=== PATIENT | female | born 2005 | race Caucasian/White ===

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

== ENCOUNTER 2024-02-07 15:46 | Emergency (ER) | payer OTHER, SELFPAY ==
[2024-02-07 16:00] VITALS: BP 110/73; PULSE 93; RESP 18; TEMP 37.1; O2SAT 100
--- NOTE | 2024-02-07 16:00 | ED.URI ---
HPI - URI/Sore Throat General Chief Complaint: Upper Respiratory Infection Stated Complaint: cough/runny nose Time Seen by Provider: 02/07/24 16:00 Source: patient and RN notes reviewed Mode of arrival: ambulatory Limitations: no limitations History of Present Illness HPI Narrative: 18-year-old female presents with concern for one-week history of cough. Reports she started having a runny nose yesterday. She fever, body aches, chills, sweats MD elicited complaint: cough and rhinorrhea Related Data Allergies Allergy/AdvReac Type Severity Reaction Status Date / Time Penicillins Allergy Unknown Rash Verified 02/07/24 16:01 Review of Systems Review of Systems: CONSTITUTIONAL: Denies malaise, chills, sweats, or fever. EYES: Denies visual changes, redness, or discharge. ENT: Reports rhinorrhea. Denies congestion, sinus pain, otalgia and sore throat. CARDIOVASCULAR: Denies chest pain, palpitations, or edema. RESPIRATORY: Reports cough. Denies dyspnea. GASTROINTESTINAL: Denies abdominal pain, nausea, vomiting, diarrhea SKIN: Denies rash or itching. MUSCULOSKELETAL: Denies myalgia. NEUROLOGIC: Denies headache. All systems reviewed & are unremarkable except as noted in HPI and below PMFSH Comments At time of signature, agree with nursing past medical, surgical, social and family history. There is no relevant family history pertinent to the presenting complaint Exam Narrative: GENERAL: Well-appearing, well-nourished, and in no acute distress. HEAD: Normocephalic EYES: PERRLA, conjunctivae clear ENT: Nares clear, clear discharge. Mucous membranes moist. TM pearly crespo with dull light reflex bilaterally; no tragal tenderness. Oropharynx not erythematous without lesions. Tonsils not enlarged and without exudate, no drooling, no hoarseness, no trismus, uvula midline. NECK: Supple. No lymphadenopathy CHEST: Clear to auscultation, breath sounds equal. No wheezing, rhonchi, rales, or stridor. No respiratory distress, speaks in full sentences. HEART: Regular rate and rhythm. No murmur heard. SKIN: Warm, dry, no rash. NEURO: Alert and oriented x3. PSYCH: Normal mood and affect Course Course Emergency Course: Patient is aware of diagnosis, understands and agrees to treatment plan. Anticipatory guidance given. Patient agrees to follow-up as directed and is aware of reasons to seek care at the emergency department. Portions of this record may have been created with voice recognition software Level of Care: Express Care Visit Vital Signs Vital signs: Reviewed. MDM - URI/Sore Throat MDM Narrative Medical decision making narrative: Differential diagnosis considered: Meyer virus, strep pharyngitis, allergic rhinitis, upper respiratory tract infection, sinusitis, rhinosinusitis, nasopharyngitis. viral pharyngitis, otitis media, otitis externa, pneumonia, bronchitis, viral cough syndrome, viral syndrome, and influenza. Exam findings show no acute concerns or changes; patient is non-toxic appearing and is in no distress. Patient is appropriate for outpatient treatment and follow-up. Lab Data Attestation: I reviewed the patient's lab results. Critical Care Time Critical Care Time Critical Care Time: No Discharge Plan Discharge Clinical Impression: Acute lower respiratory infection Patient Disposition: Home, Self-Care Condition: Stable Instructions: Antibiotic Form, Acute Cough (ED) Additional Instructions: 1) Please follow-up with your primary care doctor in the next 1-2 days. 2) If you have any worsening of symptoms or any other urgent concerns please go to the ER. 3) Please take medications as prescribed and continue taking your home medications as usual. 4) Please read and follow information included in discharge instructions. Prescriptions: New methylprednisolone [Medrol (Xavi)] 4 mg tablets,dose pack See Rx Instructions .ROUTE .COMPLEX Qty: 21 0RF Rx Instructions: orally per package directions azithromycin [Zithromax Z-Xavi] 250 mg tablet See Rx Instructions .ROUTE .COMPLEX Qty: 6 0RF Rx Instructions: take 500 mg today (day 1), then 250 mg for 4 days (days 2-5) Follow-up/Referrals: Lawrence,Vania Hagen MD [Primary Care Provider] - Time of Disposition: 16:05
== END 2024-02-07 16:10 | disposition home or self-care (01) ==
PROVIDERS: Emergency Provider Nurse Practitioner; PCP Family Medicine
DX: J22 Unspecified acute lower respiratory infection (principal)
CPT/HCPCS: 99213; G0463

== ENCOUNTER 2024-04-23 16:20 | Emergency (ER) | payer OTHER, SELFPAY ==
[2024-04-23 16:25] VITALS: BP 113/77; PULSE 77; RESP 20; TEMP 36.8; O2SAT 100
--- NOTE | 2024-04-23 16:46 | ED.URI ---
HPI - URI/Sore Throat General Chief Complaint: Upper Respiratory Infection Stated Complaint: Sore Throat Time Seen by Provider: 04/23/24 16:50 History of Present Illness HPI Narrative: 18 y/o female presented for c/o cough, sore throat and nasal congestion. Onset 3 days. Denies sob, wheezing, lethargy, n/v/d/f/c. Taking Nyquil. Related Data Home Medications ?Medication ?Instructions ?Recorded ?Confirmed ?Last Taken ?Type metronidazole 0.75 % (37.5 mg/5 1 appful vaginal .2XWEEK 04/23/24 Unknown History gram) vaginal gel Allergies Allergy/AdvReac Type Severity Reaction Status Date / Time Penicillins Allergy Unknown Rash Verified 04/23/24 16:45 Review of Systems Review of Systems: ROS per HPI Exam Narrative: GENERAL: well-appearing, no acute distress. EYES: conjunctivae clear ENT: Mucous membranes moist. TM pearly crespo with normal light reflex bilaterally; no tragal tenderness. Oropharynx not erythematous without lesions. Tonsils not enlarged and without exudate. No drooling, no hoarseness, no trismus, uvula midline. No tripod positioning, hot potato voice, or soft palate swelling. NECK: Supple. No lymphadenopathy CHEST: Clear to auscultation, breath sounds equal. No respiratory distress, speaks in full sentences. HEART: Regular rate and rhythm. No murmur heard. SKIN: Warm, dry, no rash. NEURO: Alert and oriented x3. Course Course Emergency Course: Patient is aware of diagnosis, understands and agrees to treatment plan. Anticipatory guidance given. Patient agrees to follow-up as directed and is aware of reasons to seek care at the emergency department. Portions of this record may have been created with voice recognition software Level of Care: Express Care Visit Vital Signs Vital signs: Vital Signs Temperature 98.3 F 04/23/24 16:25 Pulse Rate 77 04/23/24 16:25 Respiratory Rate 20 04/23/24 16:25 Blood Pressure 113/77 04/23/24 16:25 Pulse Oximetry 100 04/23/24 16:25 Oxygen Delivery Room Air 04/23/24 16:25 Temperature 98.3 F 04/23/24 16:25 Pulse Rate 77 04/23/24 16:25 Respiratory Rate 20 04/23/24 16:25 Blood Pressure 113/77 04/23/24 16:25 Pulse Oximetry 100 04/23/24 16:25 Oxygen Delivery Room Air 04/23/24 16:25 MDM - URI/Sore Throat MDM Narrative Medical decision making narrative: Negative flu, COVID,strep result reviewed with pt. Advise supportive treatments. Patient is appropriate for outpatient treatment and follow-up. Differential Diagnosis Differential diagnosis: Likely upper respiratory infection, viral infection and pharyngitis Discharge Plan Discharge Clinical Impression: Upper respiratory infection Patient Disposition: Home, Self-Care Condition: Stable Instructions: Antibiotic Form, Upper Respiratory Infection (ED) Additional Instructions: flu and COVID negative. Rapid strep swab was negative today You will be notified in a few days if the culture comes back positive for strep, and appropriate antibiotics will be called in at that time. if symptoms are due to a viral illness, it is not treated with antibiotics. Viral symptoms can be present for up to 10-14 days. Recommend Flonase spray and Zyrtec for sinus congestion Cough syrup may cause drowsiness; avoid driving or take it at night time. Tylenol every 8 hours as needed for pain/fever Soft foods, cool liquids, warm tea. Gargle with warm saltwater twice a day. Chloraseptic spray and throat lozenges. Rest and stay hydrated. --Follow up with your PCP --Go to the ER immediately if you cannot swallow your saliva, trouble breathing/wheezing, throat swelling, pain is persistent and severe Patient Language: Citizen Of [place] Prescriptions: No Action metronidazole 0.75 % (37.5mg/5 gram) gel 1 appful VAGINAL .2XWEEK Follow-up/Referrals: Lawrence,Vania Hagen MD [Primary Care Provider] - Time of Disposition: 16:59
[2024-04-23 16:58] LABS: EDCOVIDSCREEN Negative (Negative); EDINFLUASCREEN Negative (Negative); EDINFLUBSCREEN Negative (Negative); EDSTREPNEGPOS1 Negative (Negative)
--- OUTSIDE RECORDS SUMMARY | 2024-04-27 10:48 | XMS_ITS | Data Portability ---
Author Organization [facility] Address [address] [place] [address] Care Team Providers Care Denture Processor Name Role Phone DONI SOUTH Sausage Wrapper DONI SOUTH Family Medicine Assessment No assessment recorded. Plan of Treatment Reminders Order Date Submit Date Provider Last Modified By Organization Details Last Modified Time Details Appointments Prophy 30 2024 01:00P Lucho COLON, NIC Not available Not available Not available Lab PPD (purified protein derivativ e), skin test [address] [facility] In-Office Order, Internal Use Only DO Not Attach Compendium DO Not Attach Compendium, Do Not Delete/merge, [id number] 07/10/2022 11:15:09 PPD (purified protein derivativ e), skin test 2022 023 [facility] In-Office Order, Internal Use Only DO Not Attach Compendium DO Not Attach Compendium, Do Not Delete/merge, [id number] 07/16/2022 15:19:50 vaginal pathogens panel, LALY+probe , vaginal fluid 2023 024 [facility], [address], [place], [address], 12/24/2023 07:37:54 lipid panel, serum 2023 024 [facility], [address], [address], [place], [address], 12/23/2023 03:36:48 CMP, serum or plasma 2023 024 [facility], [address], [address], [place], [address], 12/23/2023 03:36:49 CBC 2023 024 Y[facility], [address], [address], [place], [address], 12/23/2023 03:36:49 Referral None recorded. Procedures None recorded. Surgeries None recorded. Imaging None recorded. Medication Orders Tubersol 5 tub. unit/0.1 mL intraderm al injection solution 2022 023 [id number], [address], [place], [place], [id number], 07/10/2022 11:15:09 Tubersol 5 tub. unit/0.1 mL intraderm al injection solution 2022 023 [email or web address] Not available 08/05/2022 16:57:34 metronida zole 0.75 % (37.5 mg/5 gram) vaginal gel 2023 024 [id number], [address], [place], [place], [id number], 01/25/2024 16:40:05 Patient TargetsNo targets recorded. Patient Instructions Encounter Date Encounter Id Patient Instructions Last Modified By Organization Details Last Modified Time 07/02/2022 [id number] Learning About How to Make Healthy Changes in Your Child's Diet csuhre Not available 07/02/2022 16:53:22 Considering More Physical Activity for Your Child csuhre Not available 07/02/2022 16:53:23 Well Visit, Teens: Care Instructions csre Not available 07/02/2022 17:07:01 07/13/2022 [id number] learning about tuberculosis (TB) csuhre Not available 08/05/2022 15:05:13 12/22/2023 [id number] A healthy lifestyle: care instructions [email or web address] Not available 12/22/2023 09:37:12 Reason for Referral None Reported. Results Created Date Observation Date Name Description Value Unit Range Abnormal Flag Note LastModifiedBy Organization Detail LastModifiedTime 07/09/1907/08/2022 PPD (tess fied prote in deriv ative ), skin test Result Negati ve Not Available In-Office Order Internal Use Only DO Not Attach Compendium DO Not Attach Compendium, Do Not Delete/merge, [id number] 07/07/2022 16:21:42 07/17/19 23 07/16/2022 PPD (tess fied prote in deriv ative ), skin test Result Negati ve Not Available In-Office Order Internal Use Only DO Not Attach Compendium DO Not Attach Compendium, Do Not Delete/merge, [id number] 07/13/2022 09:03:27 12/22/19 24 12/23/2023 LIPID PANEL cholesterol, total 155 mg/dL 100-16 9 Not Available [facility] ([facility]) [address] [place], [address], 12/23/2023 03:36:48 12/22/19 24 12/23/2023 LIPID PANEL triglyceride s 67 mg/dL 0-89 Not Available [facility] ([facility]) [address] [place], [address], 12/23/2023 03:36:48 12/22/19 24 12/23/2023 LIPID PANEL HDL cholesterol 59 mg/dL >39 Not Available [facility]) [address] [place], [address], 12/23/2023 03:36:48 12/22/19 24 12/23/2023 LIPID PANEL VLDL cholesterol denia 13 mg/dL 5-40 Not Available [facility] ([facility]) [address] [place], [address], 12/23/2023 03:36:48 12/22/19 24 12/23/2023 LIPID PANEL LDL chol calc ([facility]) 83 mg/dL 0-109 Not Available [facility] ([facility]) [address] [facility], [place], [address], 12/23/2023 03:36:48 12/22/19 24 12/23/2023 COMP. METAB OLIC PANEL (14) glucose 89 mg/dL 70-99 Not Available [facility] ([facility]) [address] [place], [address], 12/23/2023 03:36:49 12/22/19 24 12/23/2023 COMP. METAB OLIC PANEL (14) BUN 13 mg/dL 6-20 Not Available [facility] ([facility]) [address] [place], [address], 12/23/2023 03:36:49 12/22/19 24 12/23/2023 COMP. METAB OLIC PANEL (14) creatinine 0.97 mg/dL 0.57-1 .00 Not Available [facility] ([facility]) [address] [place], [address], 12/23/2023 03:36:49 12/22/19 24 12/23/2023 COMP. METAB OLIC PANEL (14) eGFR 86 mL/mi n/1.7 3 >59 Not Available [facility] ([facility]) [address] [place], [address], 12/23/2023 03:36:49 12/22/19 24 12/23/2023 COMP. METAB OLIC PANEL (14) BUN/creatini ne ratio 13 9-23 Not Available [facility] ([facility]) [address] [place], [address], 12/23/2023 03:36:49 12/22/19 24 12/23/2023 COMP. METAB OLIC PANEL (14) sodium 140 mmol/ L 134-14 4 Not Available [facility] ([facility]) [address] [place], [address], 12/23/2023 03:36:49 12/22/19 24 12/23/2023 COMP. METAB OLIC PANEL (14) potassium 4.0 mmol/ L 3.5-5. 2 Not Available [facility] ([facility]) [address] [place], [address], 12/23/2023 03:36:49 12/22/19 24 12/23/2023 COMP. METAB OLIC PANEL (14) chloride 104 mmol/ L 96-106 Not Available [facility] ([facility]) [address] [facility], [place], [address], 12/23/2023 03:36:49 12/22/19 24 12/23/2023 COMP. METAB OLIC PANEL (14) carbon dioxide, total 20 mmol/ L 20-29 Not Available [facility] ([facility]) [address] [facility], [place], [address], 12/23/2023 03:36:49 12/22/19 24 12/23/2023 COMP. METAB OLIC PANEL (14) calcium 9.6 mg/dL 8.7-10 .2 Not Available [facility] ([facility]) [address] [place], [address], 12/23/2023 03:36:49 12/22/19 24 12/23/2023 COMP. METAB OLIC PANEL (14) protein, total 7.0 g/dL 6.0-8. 5 Not Available [facility] ([facility]) [address] [place], [address], 12/23/2023 03:36:49 12/22/19 24 12/23/2023 COMP. METAB OLIC PANEL (14) albumin 4.7 g/dL 4.0-5. 0 Not Available [facility] ([facility]) [address] [facility], [place], [address], 12/23/2023 03:36:49 12/22/19 24 12/23/2023 COMP. METAB OLIC PANEL (14) globulin, total 2.3 g/dL 1.5-4. 5 Not Available [facility] ([facility]) [address] [place], [address], 12/23/2023 03:36:49 12/22/19 24 12/23/2023 COMP. METAB OLIC PANEL (14) bilirubin, total 0.8 mg/dL 0.0-1. 2 Not Available [facility] ([facility]) [address] [place], [address], 12/23/2023 03:36:49 12/22/19 24 12/23/2023 COMP. METAB OLIC PANEL (14) alkaline phosphatase 57 IU/L 42-106 Not Available [facility] ([facility]) [address] [facility], [place], [address], 12/23/2023 03:36:49 12/22/19 24 12/23/2023 COMP. METAB OLIC PANEL (14) AST (SGOT) 12 IU/L 0-40 Not Available [facility] ([facility]) [address] [place], [address], 12/23/2023 03:36:49 12/22/19 24 12/23/2023 COMP. METAB OLIC PANEL (14) ALT (SGPT) 9 IU/L 0-32 Not Available [facility] ([facility]) [address] [place], [address], 12/23/2023 03:36:49 12/22/19 24 12/22/2023 CBC, PLATE LET, NO DIFFE RENTI AL WBC 5.2 x10e3 /uL 3.4-10 .8 Not Available [facility] ([facility]) [address] [place], [address], 12/23/2023 03:36:49 12/22/19 24 12/22/2023 CBC, PLATE LET, NO DIFFE RENTI AL RBC 4.53 x10e6 /uL 3.77-5 .28 Not Available [facility] ([facility]) [address] [facility], [place], [address], 12/23/2023 03:36:49 12/22/19 24 12/22/2023 CBC, PLATE LET, NO DIFFE RENTI AL hemoglobin 13.9 g/dL 11.1-1 5.9 Not Available [facility] ([facility]) [address] [facility], [place], [address], 12/23/2023 03:36:49 12/22/19 24 12/22/2023 CBC, PLATE LET, NO DIFFE RENTI AL hematocrit 43.3 % 34.0-4 6.6 Not Available [facility] ([facility]) [address] [facility], [place], [address], 12/23/2023 03:36:49 12/22/19 24 12/22/2023 CBC, PLATE LET, NO DIFFE RENTI AL MCV 96 fL 79-97 Not Available [facility] ([facility]) [address] [facility], [place], [address], 12/23/2023 03:36:49 12/22/19 24 12/22/2023 CBC, PLATE LET, NO DIFFE RENTI AL MCH 30.7 pg 26.6-3 3.0 Not Available [facility] ([facility]) [address] [facility], [place], [address], 12/23/2023 03:36:49 12/22/19 24 12/22/2023 CBC, PLATE LET, NO DIFFE RENTI AL MCHC 32.1 g/dL 31.5-3 5.7 Not Available [facility] ([facility]) [address] [facility], [place], [address], 12/23/2023 03:36:49 12/22/19 24 12/22/2023 CBC, PLATE LET, NO DIFFE RENTI AL RDW 11.9 % 11.7-1 5.4 Not Available [facility] ([facility]) [address] [facility], [place], [address], 12/23/2023 03:36:49 12/22/19 24 12/22/2023 CBC, PLATE LET, NO DIFFE RENTI AL platelets 196 x10e3 /uL 150-45 0 Not Available [facility] ([facility]) [address] [facility], [place], [address], 12/23/2023 03:36:49 12/22/19 24 12/24/2023 NUSWA B VAGIN ITIS PLUS (VG+) atopobium vaginae HIGH - 2 score abnormal Not Available [facility] ([facility]) [address] [facility], [place], [address], 12/24/2023 07:37:54 12/22/19 24 12/24/2023 NUSWA B VAGIN ITIS PLUS (VG+) bvab 2 HIGH - 2 score abnormal Not Available [facility] ([facility]) [address] [facility], [place], [address], 12/24/2023 07:37:54 12/22/19 24 12/24/2023 NUSWA B VAGIN ITIS PLUS (VG+) megasphaera 1 HIGH - 2 score abnormal Calcu late total score by sherry g the 3 indiv idual bacte rial vagin osis (BV) marke r score s toget her. Total score is inter prete d as follo ws: Total score 0-1: Indic ates the absen ce of BV. Total score 2: Indet ermin ate for BV. Addit ional clini denia data shoul d be evalu ated to estab marjorie a diagn osis. Total score 3-6: Indic ates the prese nce of BV. Not Available [facility] ([facility]) [address], [place], [address], 12/24/2023 07:37:54 12/22/19 24 12/24/2023 NUSWA B VAGIN ITIS PLUS (VG+) dread albicans, LALY NEGATI VE negati ve Not Available [facility] ([facility]) [address] [place], [address], 12/24/2023 07:37:54 12/22/19 24 12/24/2023 NUA B VAGIN ITIS PLUS (VG+) dread glabrata, LALY NEGATI VE negati ve Not Available [facility] ([facility]) [address] [facility], [place], [address], 12/24/2023 07:37:54 12/22/19 24 12/24/2023 NUA B VAGIN ITIS PLUS (VG+) trich vag by LALY NEGATI VE negati ve Not Available [facility] ([facility]) [address] [facility], [place], [address], 12/24/2023 07:37:54 12/22/19 24 12/24/2023 NUA B VAGIN ITIS PLUS (VG+) chlamydia trachomatis, LALY NEGATI VE negati ve Not Available [facility] ([facility]) [address] [place], [address], 12/24/2023 07:37:54 12/22/19 24 12/24/2023 NUA B VAGIN ITIS PLUS (VG+) neisseria gonorrhoeae, LALY NEGATI VE negati ve Not Available [facility] ([facility]) [address] [place], [address], 12/24/2023 07:37:54 Result Notes None recorded. Problems No Known Problems Procedures Surgical History Date Name Laterality Status Provider Name and Address Organization Details Recorded Time 2 incision of ingrown nail completed Flakita Estrella [place] [facility] 12/22/2023 09:11:28 Imaging Results None recorded. Procedure Notes None recorded. Medical Equipment None Reported. Allergies Allergen ID Allergen Name Allergen Category Reaction Reaction Severity Criticality Documentation Date Start Date Code Code System Note Provider Name and Address Organization Details Recorded Time [id number] Product containin g penicilli n and antibioti c (product) medicatio n Not available Not available Not available 09/26/2015 05215 05 SNOMED Not Available Not Available Not Available Medications Name Sig Start Date Stop Date Status Note LastModified by Organization Details LastModified Time permethrin cre 5%permethr in active Not Available Not Available Not Available azithromyc in 250 mg tablet active Not Available Not Available Not Available fluconazol e 150 mg tablet TAKE 1 TABLET BY MOUTH ONCE 01/24 completed Not Available Not Available Not Available metronidaz ole 0.75 % (37.5 mg/5 gram) vaginal gel Insert 1 applicato rful twice a week by vaginal route. active Not Available Not Available No t Available Tubersol 5 tub. unit/0.1 mL intraderma l injection solution Administe r .1ml interderm ally 2022 active Given LF on 2022 at 8:03 a.m. Wheal presen t. Not Available Not Available Not Available metronidaz ole 500 mg tablet 12/21 completed Not Available Not Available Not Available cephalexin 500 mg capsule 09/16 completed Not Available Not Available Not Available oseltamivi r 75 mg capsule 09/16 completed Not Available Not Available Not Available Banophen 25 mg capsule TAKE 1 CAPSULE BY MOUTH EVERY 4 TO 6 HOURS FOR ITCHING. MAY MAKE YOU DROWSY. 12/21 completed Not Available Not Available Not Available methylpred nisolone 4 mg tablets in a dose pack active Not Available Not Available Not Available Bactrim DS 800 mg-160 mg tablet Take 1 tablet twice a day by oral route for 10 days. 11/14 completed Not Available Not Available Not Available Lo Loestrin Fe 1 mg-10 mcg (24)/10 mcg (2) tablet 12/21 completed Not Available Not Available Not Available Vitals Date Recorded Body height Provider Name an d Address Organization Details Last Updated DateTime 07/02/2022 166.37 cm DALTON Cui SIArmando 2022 16:35:50 Date Recorded Body mass index (BMI) Provider Name and Address Organization Details Last Updated DateTime 07/02/2022 20.2 kg/m2 [facility] 2022 16:36:08 Date Recorded Body mass index (BMI) Percentile per age and sex Body weight Provider Name and Address Organization Details Last Updated DateTime 07/02/2022 34 % 91580.26 g Vani Morris MA [facility] 07/02/2022 16:36:09 Date Recorded Heart rate Provider Name an d Address Organization Details Last Updated DateTime 07/02/2022 76 /min Vani Morris MA [facility] 2022 16:36:19 Date Recorded Respiratory rate Provider Name a nd Address Organization Details Last Updated DateTime 07/02/2022 16 /min Vani Morris MA [facility] 07/02/2022 16:36:22 Date Recorded Body temperature Provider Name a nd Address Organization Details Last Updated DateTime 07/02/2022 98 [degF] Vani Morris MA [facility] 07/02/2022 16:36:30 Date Recorded Body height Provider Name an d Address Organization Details Last Updated DateTime 12/22/2023 166.37 cm Flakita Estrella MA [facility] 12/21 08:56:52 Date Recorded Body mass index (BMI) Percentile per age and sex Body mass index (BMI) Body weight Provider Name and Address Organization Details Last Updated DateTime 12/22/2023 28 % 20 kg/m2 67115.32 g Flakita Estrella MA [facility] 12/22/2023 08:59:46 Date Recorded Oxygen saturation Oxygen saturation in Arterial blood by Pulse oximetry Provider Name and Address Organization Details Last Updated DateTime 12/22/2023 99 % 99 % Flakita Estrella MA [facility] 12/22/2023 08:59:59 Date Recorded Heart rate Provider Name an d Address Organization Details Last Updated DateTime 12/22/2023 92 /min Flakita Estrella MA [facility] 12/21 09:00:30 Date Recorded Body temperature Provider Name a nd Address Organization Details Last Updated DateTime 12/22/2023 98.7 [degF] Flakita Estrella MA [facility] 12/22/2023 09:00:32 Date Recorded Body height Provider Name an d Address Organization Details Last Updated DateTime 01/25/2024 166.37 cm Flakita Estrella MA [facility] 01/24 16:21:42 Date Recorded Body mass index (BMI) Percentile per age and sex Body mass index (BMI) Body weight Provider Name and Address Organization Details Last Updated DateTime 01/25/2024 30 % 20.2 kg/m2 32196.61 g Flakita Estrella MA [facility] 01/25/2024 16:24:11 Date Recorded Oxygen saturation Oxygen saturation in Arterial blood by Pulse oximetry Provider Name and Address Organization Details Last Updated DateTime 01/25/2024 99 % 99 % Flakita Estrella MA [facility] 01/25/2024 16:24:23 Date Recorded Heart rate Provider Name an d Address Organization Details Last Updated DateTime 01/25/2024 80 /min Flakita Delores DALTON [facility] 01/24 16:24:57 Date Recorded Body temperature Provider Name a nd Address Organization Details Last Updated DateTime 01/25/2024 98.1 [degF] Flakita Estrella MA [facility] 01/25/2024 16:25:04 Date Recorded Systolic blood pressure Diastolic blood pressure Provider Name and Address Organization Details Last Updated DateTime 07/02/2022 124 mm[Hg] 68 mm[Hg] Vani Morris MA [facility] 07/02/2022 16:36:15 Date Recorded Systolic blood pressure Diastolic blood pressure Provider Name and Address Organization Details Last Updated DateTime 12/22/2023 121 mm[Hg] 83 mm[Hg] Flakita Estrella DALTON [facility] 12/22/2023 08:59:54 Date Recorded Systolic blood pressure Diastolic blood pressure Provider Name and Address Organization Details Last Updated DateTime 01/25/2024 107 mm[Hg] 73 mm[Hg] Flakita Estrella DALTON [facility] 01/25/2024 16:24:18 Social History Question Answer Notes LastModified by Organizat ion Details LastModified Time Tobacco Smoking Status Never Smoker [facility] 09/26/2015 15:38:26 What Is Your Level Of Alcohol Consumption? None Information not available 12/22/2023 Do You Wear A Helmet When Biking? No Information not available 07/02/2022 Are You Blind Or Do You Have Difficulty Seeing? No Information not available 12/22/2023 Are You Or Have You Been Involved With Bullying? No Information not available 07/02/2022 What Is Your Level Of Caffeine Consumption? Heavy Information not available 12/22/2023 What Type Of Nca Certified Concierge Do You Use? None Information not available 11/14/2021 In The 14 Days Before Symptom Onset, Have You Had Close Contact With A Laboratory-confi rmed COVID-19 While That Case Was Ill? No Information not available 07/02/2022 In The 14 Days Before Symptom Onset, Have You Had Close Contact With A Person Who Is Under Investigation For COVID-19 While That Person Was Ill? No Information not available 07/02/2022 Have You Been To An Area Known To Be High Risk For COVID-19? No Information not available 07/02/2022 Are You Currently Employed? Yes Information not available 12/22/2023 Are You Deaf Or Do You Have Serious Difficulty Hearing? No Information not available 12/22/2023 What Type Of Diet Are You Following? REGULAR [email or web address] Information not available 09/26/2015 What Is The Highest Grade Or Level Of School You Have Completed Or The Highest Degree You Have Received? [id number] Information not available 11/14/2021 What Is Your Occupation? [employer] Information not available 12/22/2023 Are There Any Guns Present In Your Home? No Information not available 12/22/2023 What Is Your Home Situation? Relatives Lives With Maternal Gma And Sister// Bio Mom Sometimes Invovled. Information not available 07/02/2022 Do You Use Insect Repellent Routinely? Yes [email or web address] Information not available 09/26/2015 Car Seat Type Or Seat Belt? Seat Belt [email or web address] Information not available 09/26/2015 Parent Involvement? Both Parents Involved [email or web address] Information not available 09/26/2015 Riding In Car Front Seat? Yes [email or web address] Information not available 09/26/2015 What Was The Date Of Your Most Recent Tobacco Screening? 01/25/2024 Information not available 01/25/2024 What Is Your Parents' Marital Status? Unmarried [email or web address] Information not available 09/26/2015 Do You Have Any Pets? Yes Dog Information not available 11/14/2021 What Is Your Relationship Status? Single Information not available 12/22/2023 What Is The Name Of Your School? [employer] 12/22/23 [employer] Information not available 12/22/2023 Do You Use Your Seat Belt Or Car Seat Routinely? Yes Information not available 07/02/2022 Are You Sexually Active? No Information not available 12/22/2023 Do You Have Any Siblings? 1 Half Brother On Mom's Side Information not available 11/14/2021 Do You Have Smoke And Carbon Monoxide Detectors In Your Home? Yes [email or web address] Information not available 09/26/2015 Are You Passively Exposed To Smoke? Yes Outside enrique Information not available 11/14/2021 Do You Participate In Social Media? Yes Information not available 07/02/2022 Do You Feel Stressed (tense, Restless, Nervous, Or Anxious, Or Unable To Sleep At Night)? [id number] Information not available 12/22/2023 Do You Use Any Illicit Or Recreational Drugs? No Information not available 12/22/2023 Do You Use Sunscreen Routinely? Yes [email or web address] Information not available 09/26/2015 Has Tobacco Cessation Counseling Been Provided? No Information not available 01/25/2024 On What Date Was Tobacco Cessation Counseling Provided? 12/22/2023 Information not available 12/22/2023 Are You Currently In School? Yes Information not available 11/14/2021 Do You Or Have You Ever Used Any Other Forms Of Tobacco Or Nicotine? No Information not available 12/22/2023 Sex: Female Functional Status Question Answer Note LastModified by Organization D etails LastModified Time Are you able to care for yourself? Yes Information n ot available 12/22/2023 What is your exercise level? None Information not available 12/22/2023 Mental Status None recorded. Family History Relationship Description Onset Age of this Age Resolved Age Notes LastModified by Organization Details LastModified Time Maternal Grandmother Diabetes mellitus [email or web address] Not available 2018 15:24:39 Maternal Grandmother Hypertensive disorder [email or web address] Not available 11/14/2021 10:00:20 Father No current problems or disability [email or web address] Not available 09/16 15:24:24 Mother No current problems or disability [email or web address] Not available 09/16 15:24:24 Maternal Grandfather Diabetes mellitus [email or web address] Not available 2018 15:24:44 Medical History Condition Response Coronary Artery Disease N Kidney Cyst N Blood Diseases N Hyperthyroidism N Blood disorders N Blood Transfusion N MRSA N Emphysema N Depression N COPD N Blood Clots N Pneumonia N Premature N Peripheral Arterial Disease N Edema N TIA N Headaches/Migraines N Anxiety Disorder Y Obesity N Polyps N Infertility N Acid Reflux (GERD) N Hematuria N Stroke N Neck Injury N Polio N Hospital Admission other than N Neurologic Disorder N Other Sleep Disorders N Rheumatoid Arthritis N Fibromyalgia N Abdominal Aortic Aneurysm Repair N Kidney Disease N Heart Conditions N Heart Disease/Heart Problems N Hospitalizations N Brain Tumors N Acne N Skin Problems N Eating Disorder N Meningitis N Constipation N Tuberculosis N Cerebral Palsy N Myocardial Infarction N Asthma Y Substance Abuse N Peripheral Vascular Disease N Vertigo N Sleep Disorder N Cirrhosis N Pulmonary Embolism N Chicken Pox N Hematologic Disease N Flomax Use Past or Present N Anxiety/Depression N Thyroid Disease N Colon Cancer N Lung Disease N Glaucoma N Developmental or Behavioral Disorders N Bipolar N Pacemaker N Diverticulitis/Diverticulosis N Orthopedic Problems N Anesthesia Complications N Orthotics N Head Injury/Concussion N Congenital Anomalies N Abel Bite N Chronic Kidney Disease N Endometriosis N Liver Disease N Schizophrenia N Dialysis N Speech Delay N Chronic Obstructive Pulmonary Disease N Parkinson's Disease N Thyroid Problems N GI Problems Y Developmental Delay N Anemia N Multiple Sclerosis N Immune System Disorder N Colon Polyps N Heart Attack (IA) N Diabetes N Cardiomyopathy N Blood Transfusions N Heart Problems/Murmur N Eye Trauma N Congestive Heart Failure (CHF) N Valvular Heart Disease N Hyperlipidemia N Double Vision N Abuse/Domestic Violence N Hepatitis B N Lupus N Epilepsy/Seizures N Reflux/GERD N Aneurysm N Heart Disease N Bronchitis N Pre-Eclampsia N Hypertension N Heart Failure N Other N Gout N High Blood Pressure N Atrial Fibrillation N Kidney Stones N Head Trauma/Injury N Congenital Heart Disease N Spine Problems N Gastrointestinal Disease N Lung Mass N Sinusitis N Obstructive Sleep Apnea N Muscle, Joint, or Bone Problems N Autoimmune disease N Vision or Eye Problems N Arthritis N Blood Clot N Cancer N Seasonal allergies N Leg or Foot Ulcers N Raynaud's Disease N Aortic Aneurysm N Arrhythmia N Headaches N Heart Problems N Ambloypia N Ear or Hearing Problems N Hyperparathyroidism N Migraines N Artificial Joints N Kidney or Bladder Problems N NSAID Use N Have you had a mammogram in the last yea r? N Encephalitis N PTSD N Ulcers N Prostate Hypertrophy N Bleeding Disorder N AIDS/HIV N Urinary Tract Infection N Back Problems N Allergies N Atrial Flutter N Have you had a PSA blood test in the las t year? N GERD/Reflux N Hepatitis N Autism Spectrum Disorder (ASD) N Breast Cancer N Hernia N Hypothyroidism N Breast Problem N Genitourinary Disease N Deep Vein Thrombosis N Varicose Veins N Cystic Fibrosis N Hearing Loss N Developmental Problems N Carotid Disease N Vitamin D Deficiency N ADHD N Bladder or Kidney Problems N High Cholesterol N [place] N Valvular Abnormalities N Psychiatric/Mental Health Condition N Organ Transplant N Foot Deformity N Allergies/Hayfever N Dyslipidemia N Hyponatremia N Diabetic Eye Disease N Osteoporosis/Osteopenia N Back Pain N Proteinuria N Mental Illness N Neurological Problems N Ovarian Cancer N Bedwetting N Seizures/Epilepsy N Have you had a colonoscopy in the last 1 0 years? N Kidney Failure N Ocular trauma N Diverticulitis N Dementia N Sleep Apnea N Mental Problems N Warfarin Management N Osteoporosis N Gynecological History Statement/Question Response Flow Moderate Date of LMP 01/25/2024 Frequency of Cycle (Q days) 28 Menses Monthly Y Age at Menarche 10 Current Control Method None LMP Approximate Obstetrics History GPAL:G 0 P 0 0 0 0 Immunizations Vaccine Type Date Status Note Provider Nam e and Address Organization Details Recorded Time HPV9 6 completed Not Available [facility] 04/22/2019 02:49:46 Meningococcal MCV4O 6 completed Not Available [facility] 04/22/2019 02:31:36 HPV9 6 completed Not Available [facility] 04/22/2019 02:32:04 COVID-19, mRNA, LNP-S, PF, 30 mcg/0.3 mL dose 1 completed DONI SOUTH MD Attn: [address] [place], [place], [address] [place] [address], [place] [facility] 12/22/2023 09:17:12 COVID-19, mRNA, LNP-S, PF, 30 mcg/0.3 mL dose 1 completed DONI SOUTH MD Attn: [address]ing[address] [place], [address] [place] [address], [place] [facility] 12/22/2023 09:17:12 HPV9 6 completed Not Available [facility] 04/22/2019 02:40:22 influenza, split (incl. purified surface antigen) 6 completed DONI SOUTH MD Attn: [address] [place], [address] [place] [address], [place] [facility] 12/22/2023 09:16:40 influenza, split (incl. purified surface antigen) 0 completed DONI SOUTH MD Attn: Accounting[address] [place], [address] [place] [address], [place] [facility] 12/22/2023 09:16:40 Hep A, pediatric, unspecified formulation 6 completed DONI SOUTH MD Attn: Accounting[address] [place], [address] [place] [address], [place] [facility] 12/22/2023 09:16:40 Influenza, live, quadrivalent, intranasal 4 completed DONI SOUTH MD Attn: Accounting[address] [place], [address] [place] [address], [place] [facility] 12/22/2023 09:16:40 Influenza, MDCK, quadrivalent, PF 3 completed DONI SOUTH MD Attn: [address]ing[address] [place], [address] [place] [address], [place] [facility] 12/22/2023 09:17:01 Hep B, adolescent or pediatric 4 completed D[place] [facility] 09/25/2015 17:42:23 MMR 5 [place] [facility] 09/25/2015 17:42:23 Hib, unspecified formulation 5 completed Vani Morris [place] [facility] 09/25/2015 17:42:23 pneumococcal conjugate PCV 7 6 [place] V[place] [facility] 09/25/2015 17:42:23 influenza, unspecified formulation 0 completed V[place] [facility] 09/25/2015 17:42:23 DTaP 5 completed V[place] [facility] 09/25/2015 17:42:23 MMR 8 completed DONI SOUTH MD Attn: Accounting,[address] [place], [address] [place] [address], [place] [facility] 12/22/2023 09:17:12 DTaP 5 [place] [facility] 09/25/2015 17:42:23 influenza, unspecified formulation 2 completed [place] [facility] 09/25/2015 17:42:23 DTaP 4 [place] [facility] 09/25/2015 17:42:23 Tdap 4 completed DONI SOUTH MD Attn: [address]ing,[address] [place], [address] [place] [address], [place] [facility] 12/22/2023 09:17:12 pneumococcal conjugate PCV 7 4 [place] [facility] 09/25/2015 17:42:23 influenza, unspecified formulation 8 completed DONI SOUTH MD Attn: Accounting[address] [place], [address] [place] [address], [place] [facility] 12/22/2023 09:17:12 Hep B, adolescent or pediatric 5 completed [place] [facility] 09/25/2015 17:42:23 IPV 5 completed V[place] [facility] 09/25/2015 17:42:23 pneumococcal conjugate PCV 7 5 [place] [facility] 09/25/2015 17:42:23 Hib, unspecified formulation 5 [place] [facility] 09/25/2015 17:42:23 IPV 4 [place] [facility] 09/25/2015 17:42:23 IPV 5 [place] [facility] 09/25/2015 17:42:23 DTaP 6 [place] [facility] 09/25/2015 17:42:23 Hep A, ped/adol, 2 dose 6 [place] [facility] 09/25/2015 17:42:23 Hep B, adolescent or pediatric 4 [place] [facility] 09/25/2015 17:42:23 Hep B, adolescent or pediatric 5 [place] [facility] 09/25/2015 17:42:23 influenza, unspecified formulation 6 [place] [facility] 09/25/2015 17:42:23 influenza, unspecified formulation 4 [place] [facility] 09/25/2015 17:42:23 Hib, unspecified formulation 6 [place] [facility] 09/25/2015 17:42:23 DTaP-IPV 0 completed DONI SOUTH MD Attn: Accounting,[address] [facility] [place], [address], [place] [facility] 12/22/2023 09:17:12 pneumococcal conjugate PCV 7 5 [place] [facility] 09/25/2015 17:42:23 influenza, unspecified formulation 3 [place] [facility] 09/25/2015 17:42:23 Hep A, ped/adol, 2 dose 7 [place] [facility] 09/25/2015 17:42:23 varicella 5 completed V[place] [facility] 09/25/2015 17:42:23 Hib, unspecified formulation 4 completed [place] [facility] 09/25/2015 17:42:23 meningococcal MCV4P 2 completed Viktoriya [place] [facility] 11/14/2021 10:37:51 meningococcal B, OMV 2 completed [place]toriya [place] [facility] 11/14/2021 10:37:52 meningococcal B, OMV 2 completed [place] [facility] 12/19/2021 08:49:29 Past Encounters Encounter ID Performer Location Encounter Start Date Encounter Closed Date Diagnosis/Indication Diagnosis SNOMED-CT Code Diagnosis ICD10 Code Diagnosis Note [id number] [facility] [address] [place] [address] 09/26/2015 15:20:12 09/26/2015 17:31:08 Well child 513184341 Z00.[address] magistrate discussed safety and school performanc e discussed healthy weight with diet and exercise [id number] [facility] [address] [place] [address] 11/27/2015 08:19:24 11/27/2015 16:47:20 Active or passive immunization 834679761 Z23 [id number] [facility] [address] [place] [address] 04/01/2016 14:53:51 04/08/2016 12:46:31 Well child 542236044 Z00.[address] magistrate discussed safety and school performanc e discussed healthy weight with diet and exercise [id number] [facility] [address] [place] [address] 05/11/2016 16:43:03 05/15/2016 10:15:08 Influenza caused by Influenza B virus 82973407 J10.1 Pt. currently afebrile, complete Tamiflu as instructed in ER. Streptococ denia sore throat 02694047 J02.0 Pt. asymptomat ic now, cont. abx. as prescribed in ER. [id number] MD [facility] ([facility]) [address] [place] [address] 09/16/2018 15:03:08 09/19/2018 14:44:47 Well child 343768901 Z00.[address] magistrate discussed safety and school performanc e discussed healthy weight with diet and exercise Right ingr own toenail with infection [id number] 1060128 L60.0 [id number] SACHA Joiner [address] [place] [address] 12/07/2019 15:27:56 12/12/2019 12:43:44 Suspected COVID-19 191391930 Z03.818 D/w pt the current pandemic of COVID-19 and call for social isolation in order to blunt the curve and minimize risk and spread. Encouraged patient and family to take restrictio ns seriously. They have verbalized understand ing of such. Viral syndrome 638806178 B34.9 [id number] MD [facility] [address] [place] [address] 11/14/2021 09:47:12 11/18/2021 14:05:51 Well child visit 421115563 Z00.129 discussed routine adolescent carediscus sed safety and school performanc ediscussed healthy weight Diet education 90590461 Z71.3 Exercises education, guidance, and counseling 388202886 Z71.82 [id number] [facility] C[facility] (Peds) [address] [place] [address] 12/19/2021 08:19:38 12/22/2021 10:30:43 Immunization due 838142462 Z23 [id number] MD [facility] ([facility]) [address] [place] [address] 07/02/2022 16:21:59 07/03/2022 10:27:30 Well child visit 574049900 Z00.129 discussed routine adolescent carediscus sed safety and school performanc ediscussed healthy weight Diet education 37941184 Z71.3 Exercises education, guidance, and counseling 889128196 Z71.82 Normal bod y mass index 68046431 Z68.20 [id number] [facility] [address] [place] [address] 07/06/2022 08:32:25 07/07/2022 13:36:22 Tuberculosis screening 533536559 Z11.1 [id number] [facility] [address] [place] [address] 07/13/2022 08:53:54 07/14/2022 13:47:00 Tuberculosis screening 128853730 Z11.1 [id number] MD Shawna SOLIS ([facility]) [address] [place] [address] 12/22/2023 08:49:18 12/28/2023 16:18:06 Adult health examination 638692892 Z00.00 - Reviewed risks for cardiovasc ular disease, infection, and cancer; ordered screening tests as appropriat e Acute vaginitis 88366740 N76.0 - DDx: BV vs yeast vs STI (NG vs CT vs TV)- f/u NuSwab; will treat as indicated by results Normal bod y mass index 51706235 Z68.20 - Recommende d nutritious diet, regular physical activity [id number] [facility] ([facility] [address] [place] [address] 01/25/2024 16:06:38 02/04/2024 14:25:14 Bacterial vaginosis 955618627 N76.1 - History of 3 documented BV infections in past year- Will start suppressiv e therapy with vaginal metronidaz ole suppositor y at bedtime twice weekly x6 months- RTC if having new symptoms Health Concerns Section Related Observation LastModified by Organization Detai ls LastModified Time None Recorded Concern Status LastModified by Organization Details LastModified Time None Recorded Advance Directives Directive None Recorded Payers Encounter Date Sequence Insurance Name Policy Number Policy Clark Covered Member ID Clark Member ID Guarantor Name 07/02/2022 1 [facility] - DOS ON OR AFTER 20 (MEDICAID REPLACEMENT - HMO) Liseth Dom [id number] Beronica Dom 07/06/2022 1 [facility] - DOS ON OR AFTER 20 (MEDICAID REPLACEMENT - HMO) Liseth Dom [id number] Beronica Dom 07/13/2022 1 [facility] - DOS ON OR AFTER 20 (MEDICAID REPLACEMENT - HMO) Liseth Dom [id number] Beronica Dom 12/22/2023 1 [facility] (MEDICAID HMO) [id number] Liseth Dom [id number] Beronica Dom 01/25/2024 1 [facility] (MEDICAID HMO) [id number] Liseth Dom [id number] Beronica Dom Notes Date Note Type Note Provider Name and Address Organization Details Recorded Time 07/02/2022 text/html pt here for 16 y /o check up. doing well. no concerns. 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 Still had symptoms even with treatment. Still has foul-smelling discharge and vaginal itching and irritation.- Has used boric acid suppositories and had bleeding- Has had pain with removing tampons in past so doesn't use them. Has not had issues with vaginal suppositories to treat BV. Cardiovascular risk- HTN: FHx in maternal grandmother- DM2: FHx in maternal grandparents- HLD: No known FHx- Personal history of IA, CVA? No- Family history of IA, CVA? FHx in great-grandmother Infection risk- Never sexually active- Vaccines due? COVID, flu Plans for - Never sexually active Cancer screenings- Breast cancer: FHx in great-grandmother.- Cervical cancer: Not due.- Colon cancer: No close FHx.- Lung cancer: Never smoker DONI SOUTH MD Attn: [address] [place], [address], [facility] 12/22/2023 10:29:05 01/25/2024 text/html Vaginal concern- Vaginal discharge is continuing to be bothersome. Has had increased amount and change in odor.- Not having frequent vaginal itching- Just started period today- Symptoms usually resolve for 1-2 days after periods ends and then goes back to having symptoms DONI SOUTH MD Attn: [address] [place], [address], [facility] 01/25/2024 16:46:30 OBGyn Episode No OBEpisode recorded.
--- OUTSIDE RECORDS SUMMARY | 2024-04-27 10:48 | XMS_ITS | Data Portability ---
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 Plan of Treatment Reminders Order Date Submit Date Provider Last Modified By Organization Details Last Modified Time Details Appointments None recorded. Lab None recorded. Referral None recorded. Procedures None recorded. Surgeries None recorded. Imaging None recorded. Medication Orders Lo Loestrin Fe 1 mg-10 mcg (24)/10 mcg (2) tablet [address] [facility], [address] [place] [address], [id number], 2 16:25:18 Lo Loestrin Fe 1 mg-10 mcg (24)/10 mcg (2) tablet 2021 022 [facility], [address] [place], [address], 2 15:33:09 Patient TargetsNo targets recorded. Patient InstructionsNo instructions recorded. Reason for Referral None Reported. Results Created Date Observation Date Name Description Value Unit Range Abnormal Flag Note LastModifiedBy Organization Detail LastModifiedTime 12/24/1912/23/2021 CT/GC AND TRICH OMONA S VAGIN STEPHEN (RRNA ), SWAB chlamydia trachomatis, PCR Negati ve negati ve Not Available [facility] [address] [facility], [place], [address], 12/24/2021 18:56:15 12/24/19 22 12/23/2021 CT/GC AND TRICH OMONA S VAGIN STEPHEN (RRNA ), SWAB neisseria gonorrhoeae, PCR Negati ve negati ve Not Available [facility] [address] [place] [address], [id number], 12/24/2021 18:56:15 12/24/19 22 12/23/2021 CT/GC AND TRICH OMONA S VAGIN STEPHEN (RRNA ), SWAB trichomonas vaginalis ribosomal RNA (rrna) Negati ve negati ve Not Available [facility] [address] [place] [address], [id number], 12/24/2021 18:56:15 12/24/19 22 12/23/2021 VAGIN ITIS/ VAGIN OSIS, DNA PROBE dread sp. detection, direct probe Negati ve negati ve Not Available [facility] [address] [place] [address], [id number], 12/24/2021 18:56:16 12/24/19 22 12/23/2021 VAGIN ITIS/ VAGIN OSIS, DNA PROBE gardnerella vag. detection, direct probe Positi ve negati ve abnormal Not Available [facility] [address] [place] [address], [id number], 12/24/2021 18:56:16 12/24/19 22 12/23/2021 VAGIN ITIS/ VAGIN OSIS, DNA PROBE trichomonas vag. detection, direct probe Negati ve negati ve Not Available [facility] [address] [place] [address], [id number], 12/24/2021 18:56:16 03/20/20 22 03/20/2022 CT/GC AND TRICH OMONA S VAGIN STEPHEN (RRNA ), SWAB chlamydia trachomatis, PCR Negati ve negati ve Not Available [facility] (Lab) [address] [facility], [place], [address], 03/21/2022 14:39:56 03/20/20 22 03/20/2022 CT/GC AND TRICH OMONA S VAGIN STEPHEN (RRNA ), SWAB neisseria gonorrhoeae, PCR Negati ve negati ve Not Available [facility] (Lab) [address] [facility], [place], [address], 03/21/2022 14:39:56 03/20/20 22 03/20/2022 CT/GC AND TRICH OMONA S VAGIN STEPHEN (RRNA ), SWAB trichomonas vaginalis ribosomal RNA (rrna) Negati ve negati ve Not Available [facility] (Lab) [address] [facility], [place], [address], 03/21/2022 14:39:56 03/20/20 22 03/20/2022 VAGIN ITIS/ VAGIN OSIS, DNA PROBE dread sp. detection, direct probe Negati ve negati ve Not Available [facility] (Lab) [address] [facility], [place], [address], 03/21/2022 14:39:56 03/20/20 22 03/20/2022 VAGIN ITIS/ VAGIN OSIS, DNA PROBE gardnerella vag. detection, direct probe Positi ve negati ve abnormal Not Available [facility] (Lab) [address] [place], [address], 03/21/2022 14:39:56 03/20/20 22 03/20/2022 VAGIN ITIS/ VAGIN OSIS, DNA PROBE trichomonas vag. detection, direct probe Negati ve negati ve Not Available [facility] (Lab) [address] [place], [address], 03/21/2022 14:39:56 Result Notes None recorded. Medical Equipment None Reported. Allergies No known drug allergies Medications Name Sig Start Date Stop Date Status Note LastModified by Organization Details LastModified Time metronidazol e 0.75 % (37.5 mg/5 gram) vaginal gel Insert 1 applicatorf ul every day by vaginal route at bedtime for 5 days. active Not Available Not Available No t Available metronidazol e 500 mg tablet Take 1 tablet twice a day by oral route with meals for 7 days. active Not Available Not Available No t Available Lo Loestrin Fe 1 mg-10 mcg (24)/10 mcg (2) tablet Take 1 tablet every day by oral route as directed for 90 days. active Not Available Not Available No t Available Vitals Date Recorded Body height Body mass index (BMI) Percentile per age and sex Body weight Body mass index (BMI) Body mass index (BMI) Percentile per age and sex Systolic blood pressure Diastolic blood pressure Provider Name and Address Organization Details Last Updated DateTime 2 163.83 cm 30 % 85431.3 1 g 19.8 kg/m2 30 % 120 mm[Hg] 80 mm[Hg] Joy Mcfadden [facility] 2 16:05:48 Date Recorded Body height Body mass index (BMI) Body mass index (BMI) Percentile per age and sex Body weight Systolic blood pressure Diastolic blood pressure Provider Name and Address Organization Details Last Updated DateTime 2 163.83 cm 20.2 kg/m2 35 % 68509.6 5 g 110 mm[Hg] 70 mm[Hg] Debby huff [facility] 15:24:33 Social History Question Answer Notes LastModified by Organizat ion Details LastModified Time Tobacco Smoking Status Never Smoker Debby akins, [facility] 03/20/2022 15:24:42 Do You Have An Advance Directive? No Information n ot available 12/23/2021 What Is Your Level Of Alcohol Consumption? None Information not available 12/23/2021 Are You Blind Or Do You Have Difficulty Seeing? No Information n ot available 12/23/2021 What Is Your Level Of Caffeine Consumption? Moderate Information not available 12/23/2021 How Much Tobacco Do You Chew? None Information not available 03/20/2022 In The 14 Days Before Symptom Onset, Have You Had Close Contact With A Laboratory-confirm ed COVID-19 While That Case Was Ill? No Information n ot available 12/23/2021 In The 14 Days Before Symptom Onset, Have You Had Close Contact With A Person Who Is Under Investigation For COVID-19 While That Person Was Ill? No Information not available 12/23/2021 Have You Been To An Area Known To Be High Risk For COVID-19? No Information not available 12/23/2021 Are You Deaf Or Do You Have Serious Difficulty Hearing? No Information not available 12/23/2021 What Type Of Diet Are You Following? REGULAR Information n ot available 12/23/2021 What Is The Highest Grade Or Level Of School You Have Completed Or The Highest Degree You Have Received? 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 No Information not available 12/23/2021 Do You Use Your Seat Belt Or Car Seat Routinely? Yes Information not available 12/23/2021 Do You Have Smoke And Carbon Monoxide Detectors In Your Home? Yes Information not available 12/23/2021 How Much Tobacco Do You Smoke? No Information not available 03/20/2022 Do You Feel Stressed (tense, Restless, Nervous, Or Anxious, Or Unable To Sleep At Night)? [id number] Information not available 03/20/2022 Do You Use Any Illicit Or Recreational Drugs? No Information not available 12/23/2021 Do You Use Sunscreen Routinely? Yes Information not available 12/23/2021 Have You Used IV Drugs? No Information not available 12/23/2021 Sex: Unknown Functional Status Question Answer Note LastModified by Organizat ion Details LastModified Time Do you have difficulty walking or climbing stairs? No Information not available 03/20/2022 Are you able to walk? YESWOREST Information not available 12/23/2021 Are you able to care for yourself? Yes Information not available 03/20/2022 Do you have difficulty dressing or bathing? No Information not available 03/20/2022 What is your exercise level? Occasional Information not available 12/23/2021 Mental Status None recorded. Family History Relationship Description Onset Age of this Age Resolved Age Notes LastModified by Organization Details LastModified Time Maternal Aunt Hypertensive disorder Not available 2021 16:05:52 Maternal Grandmother Hypertensive disorder Not available 2021 16:05:52 Unspecified Relation Diabetes mellitus Not available 2021 16:05:52 Unspecified Relation Heart disease Not available 2021 16:05:52 Paternal Grandmother Anemia Not available 2021 16:05:52 Medical History Condition Response No Past Medical History Y Gynecological History Statement/Question Response Flow Moderate Date of LMP 12/11/2021 On BCP's at Conception? N N Was last menstrual period normal Y STIs/STDs N HPV Vaccine Y Duration of Flow (days) 6 Current Control Method BCPs Are cycles usually normal Y Frequency of Cycle (Q days) 25 Sexually Active? N BCPs Menses Monthly Y Age of first menstrual cycle 10 Date of Last Pap Smear Sexual Problems? N Desired Control Method BCPs LMP Approximate N Obstetrics History GPAL:G 0 P 0 0 0 0 Past Encounters Encounter ID Performer Location Encounter Start Date Encounter Closed Date Diagnosis/Indication Diagnosis SNOMED-CT Code Diagnosis ICD10 Code Diagnosis Note [id number] Tamra Garcia [facility] [address] [address] 12/23/2021 15:55:27 12/23/2021 17:57:34 Gynecologic examination 01432532 Z01.419 Take Calcium with Vitamin D 1200mg daily if not receiving in daily diet. It is strongly advised to have an annual flu shot and up can obtain at most pharmacies . If you have not had a TDap shot in the last 10 years you should obtain one as well. Discussed with patient & provided with informatio n regarding Gardisil vaccine to prevent the 4 strains for HPV that cause cervical cancer. Encourage safe sexual practices, to use condoms and limit partners if not already in a monogamous relationsh ip. Do monthly self breast exams. BRCA testing is now available for patients with strong genetic history of female cancer. If interested contact the office. Engage in daily exercise of low impact aerobic exercise 45-60 minutes 4-5 times weekly. Avoid tobacco, illicit drugs, and alcohol. This lifestyle behavior pattern will lead to less health conditions and longer life span. If BMI greater than 25 weight watchers or dietary consult advised. Pap smear is not recommende d prior to the age of 21. If you have any concerns, pelvic, or vaginal problems we can discuss testing. Patient received above instructio ns, and questions have been answered. If you have any questions please call or respond to this email. Patient was made aware of the patient portal and may obtain a paper copy of today's plan if desired.Jordan p due age 19yo if SA per asccp STD Screen declined-n ot SA at this time Genetic Screen discussed Colon Screen na Dexa Screen na Routine Labs na Contracept ion care management 121790042 Z30.9 Discussed all control options in great detail. Pt would like to start ocp. She is aware of the risks and benefits. She does not have any medical condition that is contraindi cated with the use of estrogen containing control. Pt will start her pills on the first wednesday following the start of her period. She is aware it is not effective for control the first month. She is also aware of the importance of taking at the same time every day. Encouraged use of condoms as the pill does not protect against STD's. Will return in 3 months for med check. Consent was read and signed. Pt verbalized understand Wai ELLIS with med check x 3mos Vaginitis [id number] N76.0 [id number] SIOM[facility] [address] [address] 03/20/2022 15:16:47 03/20/2022 16:20:58 Contraception care management 158072954 Z30.9 Patient is here today for a medicaton check of control. She voices goals of therapy have been met with use of this therapy. She denies neg side effects. She is eating, drinking, sleeping well; moods are stable & periods are well regulated. Wishes to continue this method of BC. Appropriat e to continue this medication . Time spent in visit is a total of 26 mins with at least 50% of visit consisting of counseling and review of plan of care. Vaginitis 10284988 N76.0 Swabs sentD/C looks normal on exam but wanted tested for reassuranc e for increase in d/c without other sx's.Will reach out with update on results if abn. Health Concerns Section Related Observation LastModified by Organization Detai ls LastModified Time None Recorded Concern Status LastModified by Organization Details LastModified Time None Recorded Advance Directives Directive N: Payers Encounter Date Sequence Insurance Name Policy Number Policy Clark Covered Member ID Clark Member ID Guarantor Name 12/23/2021 1 [facility] ON OR AFTER 10/03/20 (MEDICAID REPLACEMENT - HMO) Beronica Dom [id number] Beronica Dom 03/20/2022 1 [facility] ON OR AFTER 10/03/20 (MEDICAID REPLACEMENT - HMO) Beronica Dom [id number] Beronica Dom Notes Date Note Type Note Provider Name and Address Organization Details Recorded Time 12/23/2021 text/html Annual GYNReport ed bypatient.Menstrua l cycle:Normal menses Urinary symptoms:No hematuria; No incontinence Vulva:No genital lesion Vagina:Foul-smelli ng;Yellow-green, thick Breast:No breast pain; No breast lump; No nipple discharge Sexual complaints:No sexual complaints; No pain during intercourse; Normal libido Menopausal Symptoms:No menopausal symptoms; Normal vaginal lubrication Psychological symptoms:No depression; No anxiety; No PMDD Preventive measures:Encourage self breast examination; Encourage regular exercise; Encourage no tobacco use; Encourage regular mammograms starting age 40 Tamra Garcia [facility] [address], [place], [address], [facility] 12/23/2021 17:38:13 03/20/2022 text/html Here today for medication check of lo loestrin Fe. Tamra Garcia [facility] [address], [place], [address], [facility] 03/20/2022 15:41:07 OBGyn Episode No OBEpisode recorded.
== END 2024-04-23 17:00 | disposition home or self-care (01) ==
PROVIDERS: Emergency Provider Nurse Practitioner Family; PCP Family Medicine
DX: J06.9 Acute upper respiratory infection, unspecified (principal); Z20.822 Contact with and (suspected) exposure to COVID-19
CPT/HCPCS: 87081; 87426; 87804; 87880; 99213; G0463